=== PATIENT | female | born 2000 | race Caucasian/White ===

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

== ENCOUNTER 2018-07-15 06:55 | Day surgery (SDC) | payer BC, OTHER ==
[~2018-07-15 06:55] MED LIST: Buffered Lidocaine 1% SYRIN* 1 ML/SYRINGE INTRADERM ONE; Lactated Ringers 1000 ML Bag* 1,000 ML IV SCH
[2018-07-15] MEDS ORDERED: ceFAZolin 2 GM PREMIX in ORs 2 GM/50 ML BAG IVPB ONE (07:13)
[2018-07-15] MEDS ORDERED: Buffered Lidocaine 1% SYRIN* 1 ML/SYRINGE INTRADERM ONE (07:13)
[2018-07-15] MEDS ORDERED: Midazolam* 1 MG/ML 2 ML VIAL (2 MG) ONE (08:31)
[2018-07-15] MEDS ORDERED: fentaNYL* 50 MCG/ML 2 ML VIAL (100 MCG VIAL) ONE ×2 (08:31→10:37)
[2018-07-15] MEDS ORDERED: Lidocaine 1% MPF wEPI 200,000* 30 ML SDV ONE (09:07)
[2018-07-15] MEDS ORDERED: Ropivacaine* 2 MG/ML 20 ML VIAL (0.2%) ONE (09:07)
[2018-07-15] MEDS ORDERED: ceFAZolin 1 GM in Dextrose (*) 1 GM/50 ML BAG IVPB ONE (09:12)
[2018-07-15] MEDS ORDERED: Naloxone* 0.4 MG/ML 1 ML VIAL IV PRN (09:50)
[2018-07-15] MEDS ORDERED: HYDROcodone/ACETAMIN 5-325 MG* 1 TAB PO PRN (09:50)
[2018-07-15] MEDS ORDERED: Acetaminophen TAB* 325 MG PO PRN (09:50)
[2018-07-15] MEDS ORDERED: Metoclopramide IV* 5 MG/ML 2 ML VIAL IV PRN (09:50)
[2018-07-15] MEDS: fentaNYL* 50 MCG/ML 2 ML VIAL (100 MCG VIAL) IV PRN ×2 (10:38→10:46)
[2018-07-15] MEDS ORDERED: HYDROcodone/ACETAMIN 5-325 MG* 1 TAB ONE (10:55)
[2018-07-15 12:21] VITALS: BP 108/78
--- NOTE | 2018-07-15 13:30 | OP ---
OPERATIVE REPORT: DATE OF OPERATION: 07/15/18 DATE OF : [birth year] SURGEON: Love Rosales MD ASSISTANTS: 1. BHAVIK Eckert 2. BHAVIK Robledo Assistants were needed for the entirety of the case due to the patient's size and to help with positioning, retraction, and utilized throughout all portions of the case. ANESTHESIOLOGIST: Dr. Ross. ANESTHESIA: General. PRE-OP DIAGNOSIS: Right knee medial meniscus bucket-handle tear. POST-OP DIAGNOSIS: Right knee medial meniscus bucket-handle tear. OPERATIVE PROCEDURE: Right knee arthroscopy with subtotal medial meniscectomy. COMPLICATIONS: None. ESTIMATED BLOOD LOSS: Minimal. INDICATIONS: Doris Bassett is a 18-year-old female, who sustained injury to her knee in May. She was over 2 years out from her medial meniscus tear. She had blocked motion. She had a catching, locking pain, and MRI demonstrated a bucket- handle meniscus tear. Risks and benefits of the surgery were discussed at length and included, but are not limited to bleeding; infection; damage to nerves, vessels, surrounding structures; wound nonhealing; persistent pain; need for surgery; scarring; stiffness; incomplete relief of symptoms, risk of anesthesia, and risk of DVT. DESCRIPTION OF PROCEDURE: The patient was greeted in the preoperative area by the attending surgeon. Correct extremity was marked and consent was confirmed. The patient was brought back to the operative suite where she was placed in supine position on the operating table. She then underwent general anesthesia and LMA intubation, after which the unsterile tourniquet was placed high on the proximal thigh. The lateral post was positioned. The right leg was then prepped and draped in usual sterile fashion beginning with chlorhexidine soap, scrub, and alcohol wipe, and a final prep of ChloraPrep. After appropriate surgical pause indicating side, site, and procedure, administration of antibiotics, the knee was intra- articularly injected with 1% lidocaine with epi. The lateral portal was made in an outside-in fashion. An anteromedial portal was then made using 18-gauge needle for localization. Shaver was used to debride back the fat pad. The bucket-handle tear was obviously visualized. It was very thin in the white-white zone anteriorly. This was then debrided back. I tried to manually reduce this, but it was unable to be reduced, so I had to do a partial meniscectomy. It was white-white and very thin. Initially , I thought that only a small portion of this meniscus had torn, but as I removed that fragment, I realized there was another displaced fragment that was placed behind the medial femoral condyle and there was a significant portion of the posteromedial aspect of the meniscus. With care to try to not damage the cartilage as the medial femoral condyle had grade 0 changes, the medial plateau had grade 0 to 1 changes and the previous sutures from the posterior aspect of that meniscus were visible from the previous repair, carefully with great difficulty but after trying to expose for 5 to 10 minutes, the meniscus fragment was able to be brought back to the joint. This ended up being almost the entirety of the posteromedial aspect of the knee and the meniscus extending to the root. Again, this was bulbous and poor quality tissue and had no blood supply. Unfortunately, I was not able to repair this and then a meniscectomy had been done with biters and lee to debride this back. The previously placed suture that was in the medial aspect of the meniscus was then removed so as to cause no abrasion. Patellofemoral joint was examined. There was small area of grade 2 changes of the patella that had small unstable flaps, which were debrided back using the shaver. The lateral compartment was examined. There were grade 0 to 1 changes of the lateral plateau, grade 0 changes of the femur, and the meniscus was intact. ACL and PCL were intact. Final images were obtained. The wounds were copiously irrigated with sterile saline. The portals were closed with 3-0 nylon. Sterile dressings were applied and Cryo/ Cuff was applied. She was awoken from anesthesia and transferred to the PACU in stable condition. POSTOPERATIVE PLAN: She will be nonweightbearing, discharged on pain medication and Keflex as she has had surgery before. DVT prophylaxis was considered, but deferred due to no previous personal or family history. I will see the patient back in 10 to 14 days. [id number]/[facility] #: [id number] SURESH
== END 2018-07-15 12:23 | disposition home or self-care (01) ==
LOC: OR 06:55
PROVIDERS: ATTEND Orthopaedic Surgery
DX: S83.211A Bucket-handle tear of medial meniscus, current injury, right knee, initial encounter (principal); E11.9 Type 2 diabetes mellitus without complications; Z79.84 Long term (current) use of oral hypoglycemic drugs; F41.8 Other specified anxiety disorders; X58.XXXA Exposure to other specified factors, initial encounter; Y92.9 Unspecified place or not applicable
CPT/HCPCS: 81025; J0690; J2001; J2250; J2795; J3010

== ENCOUNTER 2018-07-26 07:28 | Emergency (ER) | payer BC, OTHER ==
--- OUTSIDE RECORDS SUMMARY | 2018-07-26 07:33 | XMS REPORT | Continuity of Care Document ---
:2000 External Reference #:[id number] Author Name Liliana Mitchell Care Team Providers Name Role Phone Thalia Cortes MD Primary Care Physician Unavailable Payers Date Identification Numbers Payment Provider Subscriber Effective: 2016 Policy Number: [id number] [employer] Janeen Bassett PayID: [id number] [address] [address] [place] [phone] Expires: 2016 Policy Number: [id number] [employer] Janeen Bassett PayID: [id number] [address] [address] [place] [address] Effective: 2013 Policy Number: [id number] [employer] Monroe Bassett Expires: 2016 PayID: [id number] [address] [address] [address] Policy Number: [id number] [facility] Monroe Bassett PayID: [id number] [address] [place] [address] Problems Active Problems Provider Date Closed fracture of metatarsal bone Love Rosales MD Onset: 08/25/2015 Nondisplaced fracture of fifth metatarsal bone, Love Rosales MD Onset: 09/11 right foot, subsequent encounter for fracture with routine healing Sprain of medial collateral ligament of knee Keily Ulloa M.D. Onset: 2015 Knee joint effusion Love Rosales MD Onset: 12/19/2015 Current tear of medial cartilage AND/OR meniscus Love Rosales MD Onset: of knee Bucket-handle tear of medial meniscus, current Love Rosales MD Onset: 2016 injury, right knee, subsequent encounter Sprain of knee and leg Love Rosales MD Onset: 06/09/2018 Family History Date Family Member(s) Observation Comments General Diabetes Social History Type Date Description Comments Sex Unknown Lives With Family Occupation [employer] ETOH Use Denies alcohol use Tobacco Use Start: Unknown Patient has never smoked Smoking Status Reviewed: 07/09/18 Patient has never smoked Exercise Type/Frequency Exercises sporadically Allergies, Adverse Reactions, Alerts Description No Known Drug Allergies Medications Active Medications SIG Qnty Indications Ordering Provider Date Ibuprofen three times a 90tabs S83.211A Love Rosales MD 01/25/2016 600mg Tablets day as needed pain Metformin HCL 1 by mouth twice Unknown 500mg a day Tablets Fluoxetine HCL Thalia Cortes, 20mg Capsules History Medications Medrol use as directed 1units G56.03 Kari Child, 05/07/2018 - 4mg TBPK M.Myles Unknown No Active Unknown 01/25/2016 - Medications 01/25/2016 Percocet take 1-2 tabs by 60tabs Love Rosales MD 01/12/2016 - 5-325mg mouth q4-6 hours 12/26/2015 Tablets as needed pain No Active Unknown 12/15/2015 - Medications 01/12/2016 Motrin Ib as needed Unknown - 200mg 12/14/2015 Tablets Prozac 1 by mouth every Unknown - 20mg Capsules day Unknown Vital Signs Date Vital Result Comment 07/09/2018 2:37pm Height 67 inches 5'7" Weight 302.00 lb Heart Rate 115 /min BP Systolic 134 mmHg BP Diastolic 80 mmHg Respiratory Rate 16 /min Body Temperature 98.6 F Pain Level 0 BMI (Body Mass Index) 47.3 kg/m2 06/18/2018 2:49pm Height 67 inches 5'7" Weight 306.00 lb Heart Rate 78 /min BP Systolic 120 mmHg BP Diastolic 80 mmHg Body Temperature 97.9 F Pain Level 0 BMI (Body Mass Index) 47.9 kg/m2 Height Percentile 86 % Weight Percentile >97th 06/09/2018 2:59pm Height 67 inches 5'7" Weight 306.00 lb Heart Rate 74 /min BP Systolic 120 mmHg BP Diastolic 76 mmHg Body Temperature 98.4 F Pain Level 0 BMI (Body Mass Index) 47.9 kg/m2 Height Percentile 86 % Weight Percentile >97th 05/07/2018 9:38am Height 67 inches 5'7" Weight 300.50 lb Heart Rate 86 /min BP Systolic 130 mmHg BP Diastolic 82 mmHg Respiratory Rate 18 /min Body Temperature 98.0 F Pain Level 5 BMI (Body Mass Index) 47.1 kg/m2 Height Percentile 86 % Weight Percentile >97th 09/27/2016 9:11am Height 67 inches 5'7" Weight 283.00 lb Heart Rate 88 /min BP Systolic Sitting 126 mmHg BP Diastolic Sitting 84 mmHg Respiratory Rate 14 /min Body Temperature 98.0 F Pain Level 0 BMI (Body Mass Index) 44.3 kg/m2 Blood Pressure Percentile 0 % Height Percentile 86 % Weight Percentile >97th 07/04/2016 11:37am Height 67 inches 5'7" Weight 275.00 lb BP Systolic 119 mmHg BP Diastolic 81 mmHg Body Temperature 98.3 F Pain Level 0 BMI (Body Mass Index) 43.1 kg/m2 Blood Pressure Percentile 69 % Height Percentile 86 % Weight Percentile >97th 06/27/2016 8:28am Height 67 inches 5'7" Weight 275.00 lb Heart Rate 81 /min BP Systolic 120 mmHg BP Diastolic 70 mmHg Body Temperature 97.1 F Pain Level 1 BMI (Body Mass Index) 43.1 kg/m2 Blood Pressure Percentile 72 % Height Percentile 86 % Weight Percentile >97th 05/30/2016 11:06am Height 67 inches 5'7" Weight 275.00 lb Heart Rate 88 /min BP Systolic 130 mmHg BP Diastolic 82 mmHg Respiratory Rate 20 /min Body Temperature 98.2 F Pain Level 4 BMI (Body Mass Index) 43.1 kg/m2 Blood Pressure Percentile 93 % Height Percentile 86 % Weight Percentile >97th 05/16/2016 8:41am Height 67 inches 5'7" Weight 275.00 lb Heart Rate 89 /min BP Systolic 152 mmHg BMI (Body Mass Index) 43.1 kg/m2 Blood Pressure Percentile 0 % Height Percentile 86 % Weight Percentile >97th 03/15/2016 8:38am Height 67 inches 5'7" Weight 275.00 lb Respiratory Rate 18 /min Pain Level 2 BMI (Body Mass Index) 43.1 kg/m2 Height Percentile 86 % Weight Percentile >97th 02/08/2016 3:42pm Height 67 inches 5'7" Weight 275.00 lb Pain Level 2 BMI (Body Mass Index) 43.1 kg/m2 Blood Pressure Percentile 0 % Height Percentile 86 % Weight Percentile >97th 01/25/2016 2:40pm Height 67 inches 5'7" Weight 275.00 lb Respiratory Rate 18 /min Body Temperature 98.7 F Pain Level 4 BMI (Body Mass Index) 43.1 kg/m2 Blood Pressure Percentile 0 % Height Percentile 86 % Weight Percentile >97th 01/04/2016 11:14am Height 67 inches 5'7" Weight 275.00 lb Respiratory Rate 16 /min Pain Level 2 BMI (Body Mass Index) 43.1 kg/m2 Blood Pressure Percentile 0 % Height Percentile 87 % Weight Percentile >97th 12/19/2015 11:41am Height 67 inches 5'7" Weight 275.00 lb Respiratory Rate 16 /min Pain Level 1 for the knee , No pain in the foot BMI (Body Mass Index) 43.1 kg/m2 Blood Pressure Percentile 0 % Height Percentile 87 % Weight Percentile >97th 12/15/2015 12:54pm Height 67 inches 5'7" Weight 275.00 lb Heart Rate 87 /min BP Systolic 146 mmHg BP Diastolic 82 mmHg BMI (Body Mass Index) 43.1 kg/m2 Blood Pressure Percentile 99 % Height Percentile 87 % Weight Percentile >9711/21/2015 11:12am Height 67 inches 5'7" Weight 278.00 lb Respiratory Rate 16 /min Pain Level 0 + ache BMI (Body Mass Index) 43.5 kg/m2 Blood Pressure Percentile 0 % Height Percentile 87 % Weight Percentile >9710/06/2015 11:04am Height 67 inches 5'7" Weight 278.00 lb Pain Level 1 BMI (Body Mass Index) 43.5 kg/m2 Height Percentile 87 % Weight Percentile >9709/12/2015 3:50pm Height 67 inches 5'7" Weight 278.00 lb Pain Level 1 BMI (Body Mass Index) 43.5 kg/m2 Blood Pressure Percentile 0 % Height Percentile 87 % Weight Percentile >9709/01/2015 10:31am Height 67 inches 5'7" Weight 278.00 lb Pain Level 1 BMI (Body Mass Index) 43.5 kg/m2 Blood Pressure Percentile 0 % Height Percentile 87 % Weight Percentile >97th 08/25/2015 11:17am Height 67 inches 5'7" Weight 278.00 lb Pain Level 4 BMI (Body Mass Index) 43.5 kg/m2 Blood Pressure Percentile 0 % Height Percentile 87 % Weight Percentile >97th Results Test Date Facility Test Result H/L Range Note Laboratory test 01/12/2016 [facility] (HCG) Negative N Negative [address] [place] [address] [phone] 1 If is still suspected, please repeat test after 48 to 72 hours. This test detects intact HCG only and is indicated for the early detection of . Procedures Date Code Description Status 01/12/2016 98794 Arthroscopy,Knee,Meniscus Repair Medial Or Lateral Completed 01/12/2016 58395 Arthroscopy,Knee,Meniscus Repair Medial Or Lateral Completed 08/25/2015 50764 FX Metatarsal Care Completed Encounters Type Date Location Provider Dx Diagnosis Office Visit 06/18/2018 [facility] Love Rosales, S83.211D Bucket-hndl tear 2:45p [facility] of medial mensc, crnt injury, r knee, subs Office Visit 06/09/2018 [facility] Love Rosales, S83.91xA Sprain of 2:45p [facility] unspecified site of right knee, initial encounter M25.461 Effusion, right knee Office Visit 05/07/2018 9:30a Orthopedic Kari Child, G56.03 Carpal tunnel [facility] C.M.A. 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 unspecified Hospitalists organism F32.9 Major depressive disorder, single episode, unspecified B34.9 Viral infection, unspecified N17.9 Acute kidney failure, unspecified Office Visit 09/27/2016 Orthopedic Love S83.211D Bucket-hndl tear of 8:45a [facility] medial mensc, crnt C.M.A. injury, r knee, subs Office Visit 07/04/2016 [facility] Abelardo M93.271 Osteochondritis 11:30a [facility] dissecans, r ankle C.M.A. and joints of right foot Office Visit 06/27/2016 [facility] Love S83.211A Bucket-hndl tear of 8:15a [facility] medial mensc, crnt C.M.A. injury, r knee, init S83.211D Bucket-hndl tear of medial mensc, crnt injury, r knee, subs Office Visit 05/30/2016 11:00a [facility] Abelardo S93.601A Unspecified [facility] sprain of right C.M.A. foot, initial encounter Office Visit 05/16/2016 8:30a Orthopedic Love Rosales, S83.211A Bucket- hndl tear Services Of of medial mensc, C.M.A. crnt injury, r knee, init S83.411A Sprain of medial collateral ligament of right knee, init S83.211D Bucket-hndl tear of medial mensc, crnt injury, r knee, subs Office Visit 01/04/2016 10:45a [facility] Love Rosales, M25.461 Effusion, right Services Of knee C.M.A. S83.211A Bucket-hndl tear of medial mensc, crnt injury, r knee, init Office Visit 12/19/2015 11:30a Orthopedic Love Rosales, M25.461 Effusion, right Services [facility]. S83.411A Sprain of medial collateral ligament of right knee, init S83.231A Complex tear of medial mensc, current injury, r knee, init Office Visit 12/15/2015 1:00p [facility] Keily Ulloa, M25.561 Pain in right Of ..A. M.DSergei knee M25.461 Effusion, right knee S83.411A Sprain of medial collateral ligament of right knee, init Plan of Treatment Future Appointment(s):07/28/2018 9:00 am [facility]2018 11:15 am - BHAVIK Robledo at [facility].07/15/2018 11:15 am - ROMAIN EckertC [facility]07/15/2018 11:15 am - [facility]07/09/2018 - Love Rosales, MDS83.211D Bucket-handle tear of medial meniscus, current injury, rightFollow up:Follow up: 10-14 days post op
[2018-07-26 07:41] VITALS: BP 139/80
[2018-07-26] MEDS ORDERED: Tetan/Diph/Pertus SYR(Tdap)* 0.5 ML SYR(BOOSTRIX) use SYR IM ONE (07:49)
[2018-07-26] MEDS ORDERED: Lidocaine 1%* 5 ML VIAL INJ ONE (07:49)
--- NOTE | 2018-07-26 07:52 | UC ---
Laceration HPI - HPI Summary HPI Summary: Pt is 18 year old mqmaa-mwbh-bfhtalso female with hx of PCOS with left palmar laceration occurring last night when she fell on her bed frame. States she has mild pain. Denies warmth, drainage, fevers, chills, numbness and tingling. States she cannot recall her last tetanus immunization. No other complaints at this time. - History Of Current Complaint Chief Complaint: UCUpperExtremity Stated Complaint: HAND LACERATION Time Seen by Provider: 07/26/18 07:40 Hx Obtained From: Patient Hx Last Menstrual Period: Laceration Location: Hand - Left. Mechanism Of Injury: Sharp Trauma Onset/Duration: Sudden Onset, Lasting Hours Severity: Mild Pain Intensity: 3 Pain Scale Used: 0-10 Numeric Aggravating Factors: Nothing Related History: Dominant Hand Right - Allergies/Home Medications Allergies/Adverse Reactions: Allergies Allergy/AdvReac Type Severity Reaction Status Date / Time No Known Allergies Allergy Verified 07/26/18 07:40 PMH/Surg Hx/FS Hx/Imm Hx Previously Healthy: No Other Endocrine History: PCOS - Surgical History Surgical History: Yes Surgery Procedure, Year, and Place: 2011 RIGHT MYRINGOTOMY WITH TUBE INSERTION, [facility] [place]. 2014 TYMPANOPLASTY WITH TEMPORALIS FASCIA GRAFT(gelfoam no metal), SEE [facility] [place] REPORT. 2016 RIGHT KNEE ARTHROSCOPY,[facility] [place] - Family History Known Family History: Positive: Hypertension, Diabetes - father - Social History Alcohol Use: None Substance Use Type: None Smoking Status (MU): Never Smoked Tobacco - Immunization History Most Recent Tetanus Shot: unknown Review of Systems All Other Systems Reviewed And Are Negative: Yes Constitutional: Negative: Fever, Chills Skin: Positive: Other - Y-shaped laceration to palmar aspect of left hand at distal fifth metacarpal Motor: Negative: Decreased ROM Neurovascular: Negative: Decreased Sensation, Decreased Pulses Neurological: Negative: Weakness, Paresthesia, Numbness Physical Exam Triage Information Reviewed: Yes Appearance: Well-Appearing, No Pain Distress Vital Signs: Initial Vital Signs Temp 97.8 F 07/26/18 07:35 Pulse 84 07/26/18 07:35 Resp 16 07/26/18 07:35 BP 139/80 07/26/18 07:35 Pulse Ox 99 07/26/18 07:35 Vital Signs Reviewed: Yes Eye Exam: Normal Eyes: Positive: Conjunctiva Clear ENT Exam: Normal Dental Exam: Normal Respiratory Exam: Normal Respiratory: Positive: Lungs clear Cardiovascular Exam: Normal Cardiovascular: Positive: RRR, No Murmur Abdominal Exam: Normal Musculoskeletal Exam: Normal Musculoskeletal: Positive: Strength Intact, ROM Intact Neurological Exam: Normal Neurological: Positive: Alert Psychological Exam: Normal Skin: Positive: Other - Horizontal linear laceration to palmar aspect of left fifth distal metacarpal. No active bleeding. No erythema, warmth, drainage. Mild tenderness to palpation. NV intact distally. Cap refill < 2 seconds. Sensation intact. Procedures - Laceration/Wound Repair Left hand Location: Other - palmar aspect of left fifth distal metacarpal Description: Linear - horizontal Anesthesia: Local, 1.0%, Lido, Epi Length, Depth and Shape: Horizontal linear, 3.5 cm through to fatty tissue Laceration/Wound Explored: clean Closure: Single Layer Debridement: minimal Suture Type: Prolene Number of Sutures: 5 Layer Closure?: Yes Sterile Dressing Applied?: Yes Laceration Course/Dx - Course/Dx Course Of Treatment: 18 y/o right hand dominant female with linear laceration to palmar aspect of left hand s/p fall. Laceration irrigated thoroughly and closed with 5 sutures, wrapped in sterile dressing. Given prescription for keflex to cover for infection. Pt received Tdap here. Pt to have sutures removed in 7-10 days and to f/u with PCP. Laceration wound avulsed skin was removed and the wound was repaired. Antibiotics for short course. Patient was seen in collaboration with the physician railway yard assistant student who assisted with the procedure. - Differential Dx - Laceration/Wound Differental Diagnoses: Laceration - Diagnosis Provider Diagnosis: Laceration of left hand Discharge - Sign-Out/Discharge Documenting (check all that apply): Patient Departure All imaging exams completed and their final reports reviewed: Yes - Discharge Plan Condition: Improved Disposition: HOME Prescriptions: Cephalexin CAP* [Keflex CAP*] 500 mg PO TID #10 cap Patient Education Materials: Care For Your Stitches (ED), Laceration (ED) Referrals: Thalia Cortes MD [Primary Care Provider] - Additional Instructions: Sutures to be removed in 7-10 days time. You can return here. Return with concern for infection, fever, redness up hand, pus from wound or other concerns. - Billing Disposition and Condition Condition: IMPROVED Disposition: Home - Attestation Statements Document Initiated by Jamesibmichelle: Yes Documenting Scribe: CHON Navarro Provider For Whom Ilan is Documenting (Include Credential): Dr. Littlejohn Scribmichelle Attestation: Gonzalo Perez PA-S, scribed for Dr. Littlejohn on 07/26/18 at 0844. Scribe Documentation Reviewed: Yes Provider Attestation: The documentation as recorded by the ilan, CHON Navarro accurately reflects the service I personally performed and the decisions made by Dr. Annetta hendricks Status of Scribe Document: Viewed
== END 2018-07-26 08:45 | disposition home or self-care (01) ==
LOC: UCEAST 07:28
DX: S61.412A Laceration without foreign body of left hand, initial encounter (principal); W18.09XA Striking against other object with subsequent fall, initial encounter; Y92.003 Bedroom of unspecified non-institutional (private) residence as the place of occurrence of the external cause; Z23 Encounter for immunization
CPT/HCPCS: 12001; 12002; 90471; 90715; 99211; 99212; G0463